=== PATIENT | female | born 1955 | race Two or more races ===

== ENCOUNTER 2020-02-25 09:41 | Outpatient (CLI) | payer OTHER | END 2020-02-25 23:59 | disposition home or self-care (01) | LOC: LAB 09:41 | PROVIDERS: ATTEND Specialist | DX: Z01.812 Encounter for preprocedural laboratory examination (principal); Z20.828 Contact with and (suspected) exposure to other viral communicable diseases | CPT/HCPCS: 87426; C9803; U0003 ==

== ENCOUNTER 2020-03-03 05:38 | Inpatient (IN) | payer OTHER ==
[2020-03-03] VITALS (11 sets, daily range): BP systolic 138–147; BP diastolic 67–78
[~2020-03-03] VITALS: Ht 160 cm; Wt 86.6 kg
--- NOTE | 2020-03-03 07:30 | NUR ---
RN NOTE Patient in OR for surgery.
[2020-03-03] MEDS ORDERED: BUPIVACAINE 0.5 % PF 150 MG/30 ML VIAL ONE (07:57)
[2020-03-03] MEDS ORDERED: BACITRACIN 50000 UNITS/VIAL ONE (07:57)
--- NOTE | 2020-03-03 08:00 | NUR ---
MS RN OPEN NOTES ENDORSED BY DAMAGE ASSESSOR NURSE PATIENT WENT TO SURGERY AT 0630.
[2020-03-03] MEDS ORDERED: HYDROMORPHONE INJ 2 MG/ML DISP.SYRIN ONE (08:04)
[2020-03-03] MEDS ORDERED: TRANEXAMIC ACID 3,000 MG in SODIUM CHLORIDE IRRIG SOLUTION 70 ML IR ONE (08:30)
[2020-03-03] MEDS ORDERED: HYDROMORPHONE 1 MG/1 ML DISP.SYRIN ONE (09:56)
[2020-03-03] MEDS ORDERED: HYDROMORPHONE 1 MG/1 ML DISP.SYRIN IV PRN (10:30)
[2020-03-03] MEDS ORDERED: SENNOSIDES 8.6 MG TABLET PO PRN (10:30)
[2020-03-03] MEDS ORDERED: BISACODYL SUPP (10 MG) 10 MG/SUPP.RECT SUPP.RECT RC PRN (10:30)
[2020-03-03] MEDS ORDERED: ZOLPIDEM TARTRATE 5 MG TABLET PO PRN (10:30)
[2020-03-03] MEDS ORDERED: DOCUSATE SODIUM 250 MG CAPSULE PO PRN (10:30)
--- NOTE | 2020-03-03 10:30 | NUR ---
RECEIVED PATIENT FROM RECOVERY ROOM VIA GURNEY WITH NO SIGNS OF DISTRESS ON 2L OF NASAL CANNULA VITAL SIGNS 146/76 HR 67 spO2 98% TEMP 97F. PATIENT IS A/O X 4. NO C/O OF PAIN AT THIS MOMENT. LEFT KNEE DRESSING ON WITH NO SIGNS OF BLEEDING WITH A KNEE BRACE OVER THE DRESSING. IV LEFT HAND #22g INTACT. ORIENTED PATIENT TO HER ROOM. SAFETY MEASURES ARE APPLIED. BED IN LOW AND LOCKED POSITION. SIDE RAILS UP X 2, CALL LIGHT WITHIN REACH. WILL CONTINUE TO MONITOR.
[2020-03-03] MEDS: IV LR 1000 ML 1,000 ML IV PRN ×2 (12:33→23:40)
--- NOTE | 2020-03-03 13:24 | NUR ---
PATIENT COMPLAINED OF PAIN 9/140 PS VITALS SIGNS WITHIN NORMAL LIMIT SPO2 98% 2L OF NASAL CANNULA ADMINISTER PAIN MEDICATION. WILL CONTINUE TO MONITOR.
[2020-03-03] MEDS ORDERED: HYDROMORPHONE 1 MG/1 ML DISP.SYRIN SQ ONE (13:52)
[2020-03-03] MEDS ORDERED: PROMETHAZINE HCL 12.5 MG/SUPP.RECT RC PRN (14:00)
[2020-03-03] MEDS ORDERED: diphenhydrAMINE HCL 25 MG CAPSULE PO PRN (14:00)
[2020-03-03] MEDS ORDERED: HYDROCODONE/APAP 10/325MG TABLET PO PRN (14:00)
[2020-03-03] MEDS ORDERED: MENTHOL/CETYLPYRD (CEPACOL) 1 LOZ LOZENGE PO PRN (14:00)
--- NOTE | 2020-03-03 14:00 | NUR ---
INCENTIVE SPIROMETER WAS GIVEN TO THE PATIENT ORDERED, EDUCATED PATIENT HOW TO USE IT AND PATIENT DEMONSTRATED THE TEACH BACK.
[2020-03-03] MEDS ORDERED: MAGNESIUM HYDROXIDE 30 ML UDC PO PRN (14:30)
[2020-03-03] MEDS ORDERED: MAG HYDROX/AL HYDROX/SIMETH 30 ML UDC PO ONE (14:41)
[2020-03-03] MEDS ORDERED: ONDANSETRON HCL/PF 4 MG/2 ML VIAL IV ONE (14:42)
[2020-03-03] MEDS ORDERED: CYCLOBENZAPRINE 10 MG TABLET PO PRN (14:51)
[2020-03-03] MEDS: ANCEF 1 GM/50 ML D5W IV SCH ×4 (16:27→23:40)
[2020-03-03] MEDS: DOCUSATE SODIUM 100 MG CAPSULE PO SCH (17:34)
[2020-03-03] MEDS: HYDROMORPHONE 1 MG/1 ML DISP.SYRIN SQ PRN ×2 (17:35→21:50)
[2020-03-03] MEDS ORDERED: ONDANSETRON HCL/PF 4 MG/2 ML VIAL IV PRN (18:00)
--- NOTE | 2020-03-03 19:42 | NUR ---
MS RN CLOSED NOTES PATIENT IS A/O X 4 WITH NO SIGNS OF DISTRESS ON 2L OF NASAL CANNULA. IV L HAND #22 G INTACT RUNNING LR AT 100 ML/HR. NO C/O PAIN AT THIS TIME. WALKER, CPM AND INCENTIVE SPIROMETER AT BEDSIDE. NO SIGNS OF BLEEDING ON THE L KNEE DRESSING. PATIENT KEPT CLEAN AND DRY. ALL NEEDS, CARE, TREATMENT AND MEDICATIONS ADMINISTERED ANTICIPATED PER ORDER. SAFETY MEASURES ARE APPLIED, BED IS LOW AND LOCKED POSITION. SIDE RAILS UP X 2 FOR SAFETY. CALL LIGHT WITHIN REACH. WILL ENDORSE TO THE NEXT CERTIFIED WELDING INSPECTOR
[2020-03-03] MEDS: FAMOTIDINE (20 MG) 20 MG TABLET PO SCH (21:49)
--- NOTE | 2020-03-03 21:50 | NUR ---
MS RN NOTES PAIN MANAGEMENT C/O PAIN ON LEFT KNEE 9/10 ON PAIN SCALE,MEDICATED WITH DILAUDID 0.5MG GIVEN SQ ON LEFT LOWER ABDOMEN.
[2020-03-03] MEDS ORDERED: MAG HYDROX/AL HYDROX/SIMETH 30 ML UDC PO PRN (23:00)
--- NOTE | 2020-03-04 06:22 | NUR ---
MS RN NOTES MRSA SWAB DONE,PAIN MANAGEMENT EFFECTIVE,IVF INFUSING WELL VIA IV PUMP.VOIDING FREELY VIA BEDPAN,PT FOR AMBULATION TODAY.VITAL SIGNS STABLE.
--- NOTE | 2020-03-04 06:30 | NUR ---
MS RN NOTES DR ARNOLD,FOR PAIN MANAGEMENT,CALLED REGARDING [phone],UPDATED ABOUT LAST PAIN MEDS GIVEN TO PATIENT,WITH ORDER TO GIVE ANOTHE DOSE THIS TIME,NOTED AND CARRIED OUT.
[2020-03-04 06:43] LABS: HEMOGLOBIN 13.2 g/dL (11.5-14.8)
[2020-03-04] MEDS: HYDROMORPHONE 1 MG/1 ML DISP.SYRIN SQ PRN ×3 (06:53→19:51)
--- NOTE | 2020-03-04 06:53 | NUR ---
MS RN NOTES C/O LEFT KNEE PAIN 8/10 ON PAIN SCALE,MEDICATED WITH DILAUDID 0.5 MG GIVEN SQ ON LEFT LOWER ABDOMEN PER PATIENT REQUEST. REPORT GIVEN TO VICKI GONZALES.
--- NOTE | 2020-03-04 07:23 | NUR ---
RN NOTES RECEIVED PATIENT IN BED RESTING COMFORTABLY IN MODERATE HIGH BACK REST. A/O X 4. NO SIGNS OF DISTRESS NOTED AT THIS TIME. ON OXYGEN 2L VIA NASAL CANNULA. IV L HAND #22 INTACT RUNNING LR AT 100 ML/HR. NO SIGNS OF BLEEDING ON THE L KNEE DRESSING. PATIENT KEPT CLEAN AND DRY. SAFETY MEASURES IN PLACE, BED IS LOW AND LOCKED POSITION. SIDE RAILS UP X 2 FOR SAFETY. CALL LIGHT WITHIN REACH. WILL CONTINUE TO MONITOR.
[2020-03-04 08:00] VITALS: BP 144/77
[2020-03-04] MEDS: FAMOTIDINE (20 MG) 20 MG TABLET PO SCH ×2 (08:14→21:02)
[2020-03-04] MEDS: ASPIRIN 325 MG TABLET PO SCH (08:14)
[2020-03-04] MEDS: SERTRALINE HCL 50 MG TABLET PO SCH (08:15)
[2020-03-04] MEDS: DOCUSATE SODIUM 100 MG CAPSULE PO SCH ×2 (08:15→16:57)
[2020-03-04] MEDS ORDERED: MELO-107 PO (09:07)
[2020-03-04] MEDS ORDERED: SERT50TA PO (09:07)
[2020-03-04] MEDS ORDERED: CYCL5TAB PO (09:07)
--- NOTE | 2020-03-04 11:00 | NUR ---
RN NOTES SEEN AND EVALUATED BY PT. PATIENT AMBULATES USING WALKER. WILL CONTINUE TO MONITOR.
[2020-03-04] MEDS: IV LR 1000 ML 1,000 ML IV PRN (11:39)
[2020-03-04] MEDS: HYDROCODONE/APAP 5/325MG TABLET PO PRN (12:51)
[2020-03-04 16:00] VITALS: BP 129/69
[2020-03-04] MEDS ORDERED: HYDROCODONE/APAP 5/325MG TABLET PO ONE (17:30)
--- NOTE | 2020-03-04 18:33 | NUR ---
RN NOTES PATIENT IN BED RESTING COMFORTABLY IN MODERATE HIGH BACK REST. A/O X 4. NO SIGNS OF DISTRESS NOTED THROUGHOUT THE SHIFT. ON OXYGEN 2L VIA NASAL CANNULA. IV L HAND #22 INTACT RUNNING LR AT 100 ML/HR. NO SIGNS OF BLEEDING ON THE L KNEE DRESSING. PATIENT KEPT CLEAN AND DRY. SAFETY MEASURES IN PLACE, BED IS LOW AND LOCKED POSITION. SIDE RAILS UP X 2 FOR SAFETY. CALL LIGHT WITHIN REACH. WILL ENDORSE TO SENIOR TERADATA DEVELOPER NURSE FOR VALARIE.
--- NOTE | 2020-03-04 20:06 | NUR ---
ms hereditary cancer program coordinator initial notes pt seen in bed awake and alert facial grimace and complaining of pain on her left knee after she used the bedside comode. 02/20 . no signs of any distress noted. Dilaudid 0.5mg administered percy SQ as ordered for pt comfort. knee immobilizer also in place for pt comfort. kept her warm and comfortable at all times. IVF still infusing at 100ml/hr. place call light at reach. will continue monitoring
[2020-03-05] MEDS: ACETAMINOPHEN 325 MG TABLET PO PRN ×2 (00:50→10:42)
--- NOTE | 2020-03-05 00:54 | NUR ---
scene shifter notes pt woke up and helped him to used the bedside commode and asked for headache pain meds. TYlenol po given as ordered.
[2020-03-05] MEDS ORDERED: HYDROMORPHONE 1 MG/1 ML DISP.SYRIN SQ ONE (05:17)
--- NOTE | 2020-03-05 07:30 | NUR ---
07:30 Opening Notes: Received report from night nurse. Patient alert, awake and oriented x4. Patient able to make needs known. No s/s of distress or discomfort, no SOB. Patient had breakfast, tolerated well. 08:20 Patient with c/o pain on her left leg, pain scale 10/10, per patient, Ava given as ordered, patient tolerated well. 09:10 Patient reassessed for pain, patient still with c/o pain on left leg, pain scale 10/10, PRN dilaudid given as ordered, patient tolerated well. 09:45 Patient reassessed for pain, pain reduced. Patient was seen by PT, able to ambulate with assistance, tolerated well. Assisted with ADLs and transfers, kept clean and dry. Bed locked and in lowest position. Fall precautions observed. Patient reminded to use call light. Call light within reach. 10:[address] Condon, informed of patient's condition. Per Dr. Condon, give patient Ava before lunch and have charge nurse call him for discharge plan update. Noted, charge nurse informed. Will continue to monitor patient.
--- NOTE | 2020-03-05 07:34 | NUR ---
ms body recall instructor closing notes pt resting comfortably in bed without any distress or any discomfort noted. all due meds given and all needs met. pain subside from pain medication as ordered. kept her warm and comfortable at all times. will endorse to am nurse for continuity of care.
[2020-03-05 08:00] VITALS: BP 132/71
--- NOTE | 2020-03-05 08:00 | NUR ---
MS JANET AM NOTES RECEIVED PATIENT IN BED RESTING COMFORTABLY IN MODERATE HIGH BACK REST. A/O X 4. NO SIGNS OF DISTRESS NOTED AT THIS TIME. NO SOB ON ROOM AIR. IV L HAND #22 INTACT AND PATENT. NO SIGNS OF BLEEDING ON THE L KNEE DRESSING. WITH LT KNEE IMMOBILIZER IN PLACE. KEPT CLEAN AND DRY. SAFETY MEASURES IN PLACE, BED IS LOW AND LOCKED POSITION. SIDE RAILS UP X 2 FOR SAFETY. CALL LIGHT PLACED WITHIN REACH. WILL CONTINUE TO MONITOR.
[2020-03-05] MEDS: DOCUSATE SODIUM 100 MG CAPSULE PO SCH (08:21)
[2020-03-05] MEDS: ASPIRIN 325 MG TABLET PO SCH (08:21)
[2020-03-05] MEDS: FAMOTIDINE (20 MG) 20 MG TABLET PO SCH (08:21)
[2020-03-05] MEDS: SERTRALINE HCL 50 MG TABLET PO SCH (08:22)
[2020-03-05] MEDS: HYDROCODONE/APAP 5/325MG TABLET PO PRN (08:23)
[2020-03-05] MEDS ORDERED: CYCLOBENZAPRINE 10 MG TABLET PO SCH (09:00)
[2020-03-05] MEDS ORDERED: SERTRALINE HCL 50 MG TABLET PO SCH (09:00)
[2020-03-05] MEDS ORDERED: ASPI-992 PO (09:12)
[2020-03-05] MEDS ORDERED: HYDR-3972 PO (09:12)
[2020-03-05 12:41] LABS: BASOPHILS # (AUTO) 0.1 /CMM (0.0-0.2); BASOPHILS % (AUTO) 0.9 % (0.0-2.0); EOSINOPHILS % (AUTO) 0.5 % (0.0-6.0); HEMATOCRIT 38 % (33-45); HEMOGLOBIN 12.8 g/dL (11.5-14.8); LYMPHOCYTES # (AUTO) 1.5 /CMM (0.8-4.8); LYMPHOCYTES % (AUTO) 13.6 % (20.0-44.0); MEAN CORPUSCULAR HGB CONC 34 g/dl (31.0-36.0); MEAN CORPUSCULAR VOLUME 91 fL (82-100); MONOCYTES # (AUTO) 0.9 /CMM (0.1-1.30); MONOCYTES % (AUTO) 8.4 % (2.0-12.0); NEUTROPHILS # (AUTO) 8.3 /CMM (1.8-8.9); NEUTROPHILS % (AUTO) 76.6 % (43.0-81.0); PLATELET COUNT (AUTO) 177 /CMM (150-450); RED BLOOD CELL COUNT(AUTO) 4.19 MIL/uL (4.0-5.2); WHITE BLOOD COUNT (AUTO) 10.8 K/uL (4.3-11.0)
[2020-03-05 12:53] LABS: CALCIUM, SERUM 8.7 mg/dL (8.5-10.1); CREATININE 0.8 mg/dL (0.6-1.3); POTASSIUM 4.1 mmol/L (3.5-5.1)
[2020-03-05] MEDS: HYDROMORPHONE 1 MG/1 ML DISP.SYRIN SQ PRN (13:26)
--- NOTE | 2020-03-05 13:35 | NUR ---
13:22 Patient with c/o pain on left knee/leg, pain scale 8/10, PRN dilaudid given as ordered. Will continue to monitor patient.
--- NOTE | 2020-03-05 15:50 | NUR ---
Discharge Note: Patient with orders for discharge to [facility], order noted and carried out. RN [facility]. Patient alert, awake and oriented x4. Able to make needs known, made aware of discharge orders. Patient assisted with ADLs and transfers. Kept clean and dry. Skin checked, S/P left knee arthroplasty, dressing change done by nurse, no s/s of infection noted, no new injury noted. IV removed, no bleeding, no swelling, no redness noted. Patient in no s/s of distress or discomfort, no c/o pain upon discharge. Discharge instruction and medications explained to patient, patient verbalized understanding, signed and dated. All personal belongings sent with patient, no missing. 15:50 Patient left in stable condition, picked up by transportation. VS WNL.
== END 2020-03-05 15:48 | DRG 470 ==
LOC: DS 05:38 → MED 05:39
PROVIDERS: ADMIT Internal Medicine; ATTEND Internal Medicine
PROC: 0SRD0J9 Replacement of Left Knee Joint with Synthetic Substitute, Cemented, Open Approach (ICD-10-PCS; principal; 2020-03-03)
DX: M17.12 Unilateral primary osteoarthritis, left knee (principal); E66.01 Morbid (severe) obesity due to excess calories; F39 Unspecified mood [affective] disorder; Z68.33 Body mass index [BMI] 33.0-33.9, adult; Z88.5 Allergy status to narcotic agent
CPT/HCPCS: 36415; 80048-TC; 85025-TC; 85027-TC; 87081-TC; 88305-TC; 88311-TC; 93971-TC; 97110-TC; 97116-TC; 97530-TC; 97760-TC; A4217; C1713; C1776; G0378; J0690; J1100; J1170; J1885; J2405; J2704; J2765; J3490; J7060; J7120; L1830